=== PATIENT | female | born 1985 | race Caucasian/White ===

== ENCOUNTER 2017-01-04 10:46 | Emergency (ER) | payer MEDICAID ==
--- NOTE | 2017-01-04 11:26 | XRAY Preliminary Report ---
Exam: XR Foot 3 View LT IMPRESSION: Normal examination. No posttraumatic abnormality noted. [facility] SITE ID: [id number]
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
[2017-01-04] MEDS ORDERED: HYDROcod/ACETAM 5/325 MG TABLET PO STA (11:55)
[2017-01-04] MEDS ORDERED: HYDROcod/ACETAM 5/325 MG TABLET ONE (11:57)
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
[2017-01-04 13:35] VITALS: BP 123/77
== END 2017-01-04 13:33 | disposition home or self-care (01) ==
LOC: ED 10:46
DX: S93.402A Sprain of unspecified ligament of left ankle, initial encounter (principal); W17.89XA Other fall from one level to another, initial encounter; Y92.832 Beach as the place of occurrence of the external cause; Y99.9 Unspecified external cause status; R03.0 Elevated blood-pressure reading, without diagnosis of hypertension
CPT/HCPCS: 73590; 73630; 99283; A9270